=== PATIENT | male | born 1940 | race Caucasian/White ===

== ENCOUNTER → 2017-04-17 | Outpatient (CLI) | payer MEDICARE, OTHER ==
--- NOTE | 2017-04-17 16:43 | RADRPT ---
EXAM DATE/TIME: 04/17/2017 15:02 [place] COMPARISON: No previous studies available for comparison. INDICATIONS : Parkinsons. Unsteady gait and balance issues. DOSE: 4.7 mCi Ioflupane Iodine-123 in 2.5 ml total volume MEDICATION(S): 130 mg Potasium Iodine PO one hour prior to injection SPECT IMAGIN.5 hrs. IMAGNG: SPECT/CT imaging with fusion was performed. RADIATION DOSE: 30.27 CTDIvol (mGy) MEDICAL HISTORY : Diabetes mellitus type 2. Carcinoma, prostate. SURGICAL HISTORY : Prostatectomy. ENCOUNTER: [facility]ela ACUITY: 7 - 11 months PAIN SCALE: 0/10 LOCATION: Head. TECHNIQUE: SPECT imaging of the brain was performed in sagittal, axial and coronal planes. Attenuation correctio n was performed with computed tomography and both the attenuation correction and non-attenuation artur ected data sets were reviewed. FINDINGS: There is normal biodistribution of radionuclide with symmetric crescent-shaped areas of activity are in the striatum which appears distinct relative to the surrounding brain tissue. CONCLUSION: Normal examination. Martin Oswald MD on April 17, 2017 at 16:40 Board Certified Radiologist. This report was verified electronically.
== END ==
LOC: HRAD 11:06
PROVIDERS: ATTEND Specialist
DX: R25.1 Tremor, unspecified (principal)
CPT/HCPCS: 78607; A9584